=== PATIENT | female | born 1995 | race Two or more races ===

== ENCOUNTER 2019-10-13 21:28 | Emergency (ER) | payer OTHER ==
[~2019-10-13] VITALS: Ht 154.9 cm; Wt 54.4 kg
[~2019-10-13 21:28] MED LIST: CEFTIN250 MG/5 M PO; CIPRO750 MG PO; INTESTINEX680 MG PO; KETO10TA2 PO; KRISTALOSE20 GM PO; LEVSIN/SL0.125 MG SL; LEVSIN0.125 MG PO; MIRALAX510 GM PO; NABUMETONE500 MG PO; PEPCID AC20 MG PO; PROTONIX40 M1 PO; ZANTAC300 MG PO; ZOFRAN4 MG PO; ZOFRAN8 MG PO; [UNRECOGNIZED DRUG - OTHER] IM
[2019-10-13] MEDS ORDERED: TYLENOR (21:40)
[2019-10-14] MEDS ORDERED: KETO10TA2 PO (03:12)
[2019-10-14] MEDS ORDERED: CIPRO500 MG PO (03:12)
[2019-10-14] MEDS ORDERED: ZOFRAN8 MG PO (03:12)
== END 2019-10-14 04:18 | disposition home or self-care (01) ==
LOC: ER 21:28
DX: I88.0 Nonspecific mesenteric lymphadenitis (principal); R10.31 Right lower quadrant pain

== ENCOUNTER 2019-10-18 05:20 | Emergency (ER) | payer OTHER ==
[~2019-10-18] VITALS: Ht 154.9 cm; Wt 56.2 kg
[~2019-10-18 05:20] MED LIST changes: +CIPRO500 MG PO; +TYLENOR
[2019-10-18] MEDS ORDERED: VOLTAREN-XR100 MG PO (08:57)
[2019-10-18] MEDS ORDERED: PEPCID AC20 MG PO (08:57)
== END 2019-10-18 12:07 | disposition home or self-care (01) ==
LOC: ER 05:20
DX: I88.0 Nonspecific mesenteric lymphadenitis (principal); K29.60 Other gastritis without bleeding

== ENCOUNTER 2020-03-27 08:50 | Outpatient (CLI) | payer OTHER ==
[~2020-03-27 08:50] MED LIST changes: +VOLTAREN-XR100 MG PO
== END 2020-03-27 08:51 | disposition home or self-care (01) ==
LOC: RAD 08:50
PROVIDERS: ATTEND Urology
DX: N20.0 Calculus of kidney (principal)

== ENCOUNTER 2020-04-06 08:55 | Outpatient (CLI) | payer OTHER | END 2020-04-06 09:05 | disposition home or self-care (01) | LOC: SONOGRAMA 08:55 | DX: R10.2 Pelvic and perineal pain (principal); N80.0 Endometriosis of uterus ==

== ENCOUNTER 2021-12-20 05:57 | Emergency (ER) | payer OTHER ==
[~2021-12-20] VITALS: Ht 154.9 cm; Wt 57.2 kg
== END 2021-12-20 14:53 | disposition home or self-care (01) ==
LOC: ER 05:57
DX: J02.9 Acute pharyngitis, unspecified (principal)

== ENCOUNTER 2022-04-20 06:47 | Emergency (ER) | payer OTHER ==
[~2022-04-20] VITALS: Ht 154.9 cm; Wt 53.1 kg
== END 2022-04-20 14:46 | disposition home or self-care (01) ==
LOC: ER 06:47
DX: K52.9 Noninfective gastroenteritis and colitis, unspecified (principal)

== ENCOUNTER 2022-05-21 07:58 | Emergency (ER) | payer OTHER ==
[~2022-05-21] VITALS: Ht 154.9 cm; Wt 52.2 kg
[2022-05-21] MEDS ORDERED: PRILOSEC10 MG PO (13:40)
== END 2022-05-21 14:05 | disposition home or self-care (01) ==
LOC: ER 07:58
DX: K21.9 Gastro-esophageal reflux disease without esophagitis (principal)

== ENCOUNTER 2023-03-19 03:03 | Emergency (ER) | payer OTHER ==
[~2023-03-19] VITALS: Ht 154.9 cm; Wt 57.6 kg
[~2023-03-19 03:03] MED LIST changes: +PRILOSEC10 MG PO
[2023-03-19 04:19] LABS: HEMATOCRIT 40.8 % (36.0-45.00); HEMOGLOBIN 13.7 g/dL (12.0-15.00); MEAN CELL VOLUME 79.7 fL (80.00-100.00); MEAN CORPUSCULAR HEMOGLOBIN 26.8 pg (27.00-32.0); MEAN CORPUSCULAR HGB CONC 33.6 g/dl (32.0-36.0); PLATELET COUNT 285 K/uL (150-450); RED BLOOD COUNT 5.12 M/uL (4.00-6.00); RED CELL DISTRIBUTION WIDTH 12.6 % (11.5-14.5)
[2023-03-19 04:40] LABS: ALBUMIN 3.7 gm/dL (3.4-5.0); BILIRUBIN TOTAL 0.48 mg/dL (0.3-1.2); CALCIUM 9.5 mg/dL (8.5-10.1); CREATININE SERUM 0.65 mg/dL (0.55-1.02); GFR 107.02; GLOBULINA 4.5 G/DL (2.4-3.5); POTASSIUM 3.8 mEq/L (3.5-5.1); TOTAL PROTEIN 8.2 gm/dL (6.4-8.2)
[2023-03-19 04:52] LABS: PH,URINE 6.5 (5.0-8.0); URINE APPEARANCE Clear; URINE BILIRRUBIN Negative (NEGATIVE); URINE BLOOD NHT; URINE COLOR Yellow; URINE GLUCOSE Negative (NEGATIVE); URINE LEUKOCYTE Negative; URINE NITRATE Negative; URINE PROTEIN Negative (NEGATIVE)
[2023-03-19 04:56] LABS: URINE BACTERIA 408.1 uL (0.0-1933); URINE EPITHELIAL CELLS 26.8 uL (0.0-38.8); URINE RBC 19.9 uL (0.0-20.8); URINE WBC 10.3 uL (0.0-23.2)
[2023-03-19] MEDS ORDERED: VISTARIL50 MG PO (06:57)
[2023-03-19] MEDS ORDERED: ONDANSETRON ODT4 MG PO (06:57)
[2023-03-19] MEDS ORDERED: PEPCID40 MG PO (06:57)
[2023-03-19] MEDS ORDERED: INTESTINEX680 M2 PO (06:57)
== END 2023-03-19 07:12 | disposition home or self-care (01) ==
LOC: ER 03:03
PROVIDERS: General Practice
DX: F41.1 Generalized anxiety disorder (principal); R10.13 Epigastric pain

== ENCOUNTER 2024-02-28 19:45 | Emergency (ER) | payer OTHER ==
[~2024-02-28] VITALS: Ht 154.9 cm; Wt 56.2 kg
[~2024-02-28 19:45] MED LIST changes: +INTESTINEX680 M2 PO; +ONDANSETRON ODT4 MG PO; +PEPCID40 MG PO; +VISTARIL50 MG PO
[2024-02-28] MEDS ORDERED: FAMOTIDINE/PF 20 MG in 0.9 % SODIUM CHLORIDE 8 ML IV PUSH STA (20:24)
[2024-02-28] MEDS ORDERED: ONDANSETRON HCL 2 MG/ML VIAL IV ONE (20:30)
[2024-02-28] MEDS ORDERED: 0.9 % SODIUM CHLORIDE 1,000 ML IV SCH (20:30)
[2024-02-28 20:48] LABS: HEMATOCRIT 40.4 % (36.0-45.00); HEMOGLOBIN 13.4 g/dL (12.0-15.00); MEAN CELL VOLUME 81.7 fL (80.00-100.00); MEAN CORPUSCULAR HEMOGLOBIN 27.2 pg (27.00-32.0); MEAN CORPUSCULAR HGB CONC 33.3 g/dl (32.0-36.0); PLATELET COUNT 285 K/uL (150-450); RED BLOOD COUNT 4.94 M/uL (4.00-6.00); RED CELL DISTRIBUTION WIDTH 13.2 % (11.5-14.5)
[2024-02-28 21:21] LABS: BILIRUBIN TOTAL 0.45 mg/dL (0.3-1.2); CALCIUM 9.8 mg/dL (8.5-10.1); CREATININE SERUM 0.61 mg/dL (0.55-1.02); GFR 115.16; GLOBULINA 4.3 G/DL (2.4-3.5); POTASSIUM 3.72 mEq/L (3.5-5.1); TOTAL PROTEIN 8.3 gm/dL (6.4-8.2)
[2024-02-28 21:29] LABS: PH,URINE 5.5 (5.0-8.0); URINE APPEARANCE Clear; URINE BILIRRUBIN Negative (NEGATIVE); URINE BLOOD NHT; URINE COLOR Yellow; URINE GLUCOSE Negative (NEGATIVE); URINE LEUKOCYTE Negative; URINE NITRATE Negative; URINE PROTEIN Negative (NEGATIVE); URINE UROBILINOGEN 0.2 E.U./dl
[2024-02-28 21:33] LABS: URINE BACTERIA 13.8 uL (0.0-1933); URINE EPITHELIAL CELLS 24.8 uL (0.0-38.8); URINE RBC 9.4 uL (0.0-20.8); URINE WBC 5.5 uL (0.0-23.2)
[2024-02-28 21:41] LABS: URINE KETONE 80 (NEGATIVE)
[2024-02-28] MEDS ORDERED: METOCLOPRAMIDE HCL 10 MG in DEXTROSE 5 % IN WATER 50 ML IV ONE (22:00)
[2024-02-28] MEDS ORDERED: ONDANSETRON ODT8 MG PO (22:22)
[2024-02-28] MEDS ORDERED: PEPCID AC20 MG PO (22:22)
== END 2024-02-28 22:30 | disposition home or self-care (01) ==
LOC: ER 19:47
PROVIDERS: General Practice
DX: O21.0 Mild hyperemesis gravidarum (principal); Z3A.01 Less than 8 weeks gestation of pregnancy
CPT/HCPCS: 36415; 96365; 96366; 99282; J2405; J3490; J7030; J7070

== ENCOUNTER 2024-02-29 20:29 | Emergency (ER) | payer OTHER ==
[~2024-02-29] VITALS: Ht 154.9 cm; Wt 56.2 kg
[~2024-02-29 20:29] MED LIST changes: +ONDANSETRON ODT8 MG PO
[2024-02-29 21:16] LABS: HEMATOCRIT 41.5 % (36.0-45.00); HEMOGLOBIN 13.7 g/dL (12.0-15.00); MEAN CELL VOLUME 82.3 fL (80.00-100.00); MEAN CORPUSCULAR HEMOGLOBIN 27.2 pg (27.00-32.0); MEAN CORPUSCULAR HGB CONC 33.1 g/dl (32.0-36.0); PLATELET COUNT 314 K/uL (150-450); RED BLOOD COUNT 5.05 M/uL (4.00-6.00); RED CELL DISTRIBUTION WIDTH 13.1 % (11.5-14.5)
[2024-02-29 21:57] LABS: ALBUMIN 3.8 gm/dL (3.4-5.0); BILIRUBIN TOTAL 0.38 mg/dL (0.3-1.2); CALCIUM 9.4 mg/dL (8.5-10.1); CREATININE SERUM 0.8 mg/dL (0.55-1.02); GFR 84.22; GLOBULINA 3.7 G/DL (2.4-3.5); POTASSIUM 4.03 mEq/L (3.5-5.1); TOTAL PROTEIN 7.5 gm/dL (6.4-8.2)
== END 2024-02-29 22:26 | disposition home or self-care (01) ==
LOC: ER 20:30
PROVIDERS: General Practice
DX: O20.9 Hemorrhage in early pregnancy, unspecified (principal); Z3A.01 Less than 8 weeks gestation of pregnancy

== ENCOUNTER 2024-03-19 19:40 | Emergency (ER) | payer OTHER ==
[~2024-03-19] VITALS: Ht 154.9 cm; Wt 55.8 kg
[2024-03-19 19:53] VITALS: BP 103/71; O2SAT 100
[2024-03-19] MEDS ORDERED: FAMOTIDINE/PF 20 MG in 0.9 % SODIUM CHLORIDE 8 ML IV PUSH STA (20:19)
[2024-03-19] MEDS ORDERED: 0.9 % SODIUM CHLORIDE 1,000 ML IV SCH (20:30)
[2024-03-19] MEDS ORDERED: ONDANSETRON HCL 2 MG/ML VIAL IV ONE (20:30)
[2024-03-19 20:54] LABS: HEMATOCRIT 39.8 % (36.0-45.00); HEMOGLOBIN 13.2 g/dL (12.0-15.00); MEAN CELL VOLUME 80.2 fL (80.00-100.00); MEAN CORPUSCULAR HEMOGLOBIN 26.6 pg (27.00-32.0); MEAN CORPUSCULAR HGB CONC 33.1 g/dl (32.0-36.0); PLATELET COUNT 377 K/uL (150-450); RED BLOOD COUNT 4.96 M/uL (4.00-6.00); RED CELL DISTRIBUTION WIDTH 13.1 % (11.5-14.5)
[2024-03-19 21:07] LABS: PARTIAL THROMBOPLASTIN TIME 25.9 SECONDS (22.0-34.0); PROTHROMBIN TIME 10.9 SECONDS (9.0-11.5)
[2024-03-19 21:14] LABS: ALBUMIN 3.8 gm/dL (3.4-5.0); BILIRUBIN TOTAL 0.44 mg/dL (0.3-1.2); CALCIUM 9.6 mg/dL (8.5-10.1); CREATININE SERUM 0.61 mg/dL (0.55-1.02); GFR 114.4; GLOBULINA 4.5 G/DL (2.4-3.5); POTASSIUM 3.81 mEq/L (3.5-5.1); TOTAL PROTEIN 8.3 gm/dL (6.4-8.2)
== END 2024-03-19 22:02 | disposition home or self-care (01) ==
LOC: ER 19:41
PROVIDERS: General Practice
DX: R11.2 Nausea with vomiting, unspecified (principal)
CPT/HCPCS: 36415; 96365; 96366; 99282; J2405; J3490; J7030

== ENCOUNTER 2024-11-21 04:55 | Emergency (ER) | payer OTHER ==
[~2024-11-21] VITALS: Ht 154.9 cm; Wt 58.1 kg
[~2024-11-21 04:55] MED LIST changes: +PRENATAL + DHA1 EACH PO
[2024-11-21] MEDS ORDERED: 0.9 % SODIUM CHLORIDE 1,000 ML IV STA (05:58)
[2024-11-21] MEDS ORDERED: METOCLOPRAMIDE HCL 5 MG/ML VIAL IM STA (05:58)
[2024-11-21] MEDS ORDERED: FAMOtidine 10 MG/ML (4ML VIAL) IV PUSH STA (05:59)
[2024-11-21 07:31] LABS: BASO % 0.3 % (0.1-1.2); EOS # 0.05 (0.04-0.54); EOS % 0.3 % (0.7-7.0); LYMPH # 2.33 (1.18-3.74); LYMPH % 15.5 % (19.3-53.1); MEAN PLATELET VOLUME 9.50 fl (9.4-12.4); MONO # 0.65 (0.24-0.82); MONO % 4.3 % (4.7-12.5); NEUT # 11.84 (1.56-6.13); NEUT % 78.9 % (34.0-71.1); RED CELL DISTRIBUTION WIDTH 12.5 % (11.6-14.4)
[2024-11-21 08:21] LABS: BUN CREA RATIO 13.0 (7.0-25.0); CREATININE SERUM 0.54 mg/dL (0.55-1.02); GFR 131.68; GLUCOSE FASTING 83.0 mg/dL (65-100); HCG QUANTITATIVE 60531.0 mUI/mL (1-3); OSMOLALITY SERUM 273.0 MOSM/KG (275-295)
[2024-11-21 09:05] LABS: URINE APPEARANCE Cloudy; URINE BILIRRUBIN Negative (NEGATIVE); URINE BLOOD Negative; URINE COLOR Dark Yellow; URINE GLUCOSE Negative (NEGATIVE); URINE LEUKOCYTE Small; URINE NITRATE Negative; URINE PROTEIN Trace (NEGATIVE); URINE UROBILINOGEN 1.0 E.U./dl
[2024-11-21 09:09] LABS: URINE BACTERIA 393.5 uL (0.0-1933); URINE EPITHELIAL CELLS 126.4 uL (0.0-38.8); URINE RBC 123.4 uL (0.0-20.8); URINE WBC 39.2 uL (0.0-23.2)
[2024-11-21 09:30] LABS: TYPE CELLS SQUAMOUS; URINE CAST 0.00 uL (0.0-1.40); URINE KETONE 40 (NEGATIVE); URINE YEAST MANY /hpf
[2024-11-22] MEDS ORDERED: ENDOMETRIN100 MG (08:39)
== END 2024-11-21 11:31 | disposition home or self-care (01) ==
LOC: ER 04:55
DX: O21.0 Mild hyperemesis gravidarum (principal); Z3A.01 Less than 8 weeks gestation of pregnancy

== ENCOUNTER 2024-11-22 08:25 | Emergency (ER) | payer OTHER ==
[~2024-11-22] VITALS: Ht 154.9 cm; Wt 58.1 kg
[2024-11-22] MEDS ORDERED: ENDOMETRIN100 MG (08:39)
[2024-11-22] MEDS ORDERED: 0.9 % SODIUM CHLORIDE 500 ML IV ONE (09:00)
[2024-11-22 09:14] LABS: BASO % 0.4 % (0.1-1.2); EOS # 0.08 (0.04-0.54); EOS % 0.6 % (0.7-7.0); LYMPH # 2.07 (1.18-3.74); LYMPH % 15.9 % (19.3-53.1); MEAN PLATELET VOLUME 9.00 fl (9.4-12.4); MONO # 0.65 (0.24-0.82); MONO % 5.0 % (4.7-12.5); NEUT # 10.04 (1.56-6.13); NEUT % 77.3 % (34.0-71.1); RED CELL DISTRIBUTION WIDTH 12.4 % (11.6-14.4)
[2024-11-22 10:16] LABS: BUN CREA RATIO 11.0 (7.0-25.0); CREATININE SERUM 0.66 mg/dL (0.55-1.02); GFR 104.46; GLUCOSE FASTING 103.0 mg/dL (65-100); OSMOLALITY SERUM 274.0 MOSM/KG (275-295)
[2024-11-22 10:22] LABS: HCG QUANTITATIVE 67479.0 mUI/mL (1-3)
[2024-11-22 11:16] LABS: URINE APPEARANCE Cloudy; URINE BILIRRUBIN Negative (NEGATIVE); URINE BLOOD Large; URINE COLOR Yellow; URINE GLUCOSE Negative (NEGATIVE); URINE KETONE Trace (NEGATIVE); URINE LEUKOCYTE Trace; URINE NITRATE Negative; URINE PROTEIN Negative (NEGATIVE); URINE UROBILINOGEN 1.0 E.U./dl
[2024-11-22 11:21] LABS: URINE BACTERIA 103.2 uL (0.0-1933); URINE EPITHELIAL CELLS 29.0 uL (0.0-38.8); URINE RBC 140.7 uL (0.0-20.8); URINE WBC 6.3 uL (0.0-23.2)
[2024-11-22 12:32] LABS: URINE CAST 0.00 uL (0.0-1.40); URINE YEAST MODERATE /hpf
== END 2024-11-22 13:33 | disposition home or self-care (01) ==
LOC: ER 08:25
PROVIDERS: General Practice
DX: O20.0 Threatened abortion (principal); Z3A.01 Less than 8 weeks gestation of pregnancy

== ENCOUNTER 2024-12-04 10:59 | Emergency (ER) | payer OTHER ==
[~2024-12-04] VITALS: Ht 152.4 cm; Wt 52.2 kg
[~2024-12-04 10:59] MED LIST changes: +ENDOMETRIN100 MG
[2024-12-04] MEDS ORDERED: PRIMACARE SOFT1 EACH (11:06)
[2024-12-04] MEDS ORDERED: ZOFRAN8 MG (11:06)
[2024-12-04] MEDS ORDERED: PEPCID AC20 MG (11:07)
[2024-12-04] MEDS ORDERED: 0.9 % SODIUM CHLORIDE 1,000 ML IV STA (11:53)
[2024-12-04] MEDS ORDERED: ONDANSETRON HCL 2 MG/ML VIAL IV STA (11:53)
[2024-12-04] MEDS ORDERED: ONDANSETRON HCL 2 MG/ML VIAL ONE (12:10)
[2024-12-04 12:22] LABS: BASO % 0.3 % (0.1-1.2); EOS # 0.09 (0.04-0.54); EOS % 0.6 % (0.7-7.0); LYMPH # 2.05 (1.18-3.74); LYMPH % 12.8 % (19.3-53.1); MEAN PLATELET VOLUME 9.40 fl (9.4-12.4); MONO # 1.03 (0.24-0.82); MONO % 6.4 % (4.7-12.5); NEUT # 12.73 (1.56-6.13); NEUT % 79.2 % (34.0-71.1); RED CELL DISTRIBUTION WIDTH 12.4 % (11.6-14.4)
[2024-12-04 12:44] LABS: BUN CREA RATIO 10.0 (7.0-25.0); CREATININE SERUM 0.73 mg/dL (0.55-1.02); GFR 92.99; GLUCOSE FASTING 99.0 mg/dL (65-100); OSMOLALITY SERUM 274.0 MOSM/KG (275-295)
[2024-12-04 12:47] VITALS: BP 110/67; O2SAT 98
[2024-12-04 13:53] LABS: URINE APPEARANCE Clear; URINE BILIRRUBIN Negative (NEGATIVE); URINE BLOOD Small; URINE COLOR Yellow; URINE GLUCOSE Negative (NEGATIVE); URINE KETONE Trace (NEGATIVE); URINE LEUKOCYTE Negative; URINE NITRATE Negative; URINE PROTEIN Negative (NEGATIVE); URINE UROBILINOGEN 1.0 E.U./dl
[2024-12-04 13:57] LABS: URINE BACTERIA 56.4 uL (0.0-1933); URINE EPITHELIAL CELLS 26.1 uL (0.0-38.8); URINE RBC 71.4 uL (0.0-20.8); URINE WBC 9.5 uL (0.0-23.2)
[2024-12-04 14:01] LABS: URINE CAST 0.00 uL (0.0-1.40)
== END 2024-12-04 16:22 | disposition home or self-care (01) ==
LOC: ER 10:59
PROVIDERS: Emergency Medicine
DX: O21.0 Mild hyperemesis gravidarum (principal); Z3A.12 12 weeks gestation of pregnancy

== ENCOUNTER 2024-12-15 15:16 | Emergency (ER) | payer OTHER ==
[~2024-12-15] VITALS: Ht 154.9 cm; Wt 56.7 kg
[~2024-12-15 15:16] MED LIST changes: +PEPCID AC20 MG; +PRIMACARE SOFT1 EACH; +ZOFRAN8 MG
[2024-12-15] MEDS ORDERED: REGLAN5 MG/5 ML (16:27)
[2024-12-15] MEDS ORDERED: FAMOTIDINE/PF 20 MG in 0.9 % SODIUM CHLORIDE 8 ML IV PUSH STA (16:47)
[2024-12-15] MEDS ORDERED: ONDANSETRON HCL 2 MG/ML VIAL IV ONE (17:00)
[2024-12-15] MEDS ORDERED: 0.9 % SODIUM CHLORIDE 1,000 ML IV SCH (17:00)
[2024-12-15 17:20] LABS: BASO % 0.4 % (0.1-1.2); EOS # 0.16 (0.04-0.54); EOS % 1.0 % (0.7-7.0); LYMPH # 2.42 (1.18-3.74); LYMPH % 15.1 % (19.3-53.1); MEAN PLATELET VOLUME 9.00 fl (9.4-12.4); MONO # 0.88 (0.24-0.82); MONO % 5.5 % (4.7-12.5); NEUT # 12.34 (1.56-6.13); NEUT % 77.1 % (34.0-71.1); RED CELL DISTRIBUTION WIDTH 12.5 % (11.6-14.4)
[2024-12-15 18:14] LABS: ALT/SGPT 19.0 U/L (12-78); AST/SGOT 10.0 U/L (15-37); BILIRUBIN TOTAL 0.38 mg/dL (0.3-1.2); BUN CREA RATIO 12.0 (7.0-25.0); CREATININE SERUM 0.51 mg/dL (0.55-1.02); GFR 140.65; GLOBULINA 4.6 G/DL (2.4-3.5); GLUCOSE FASTING 83.0 mg/dL (65-100); OSMOLALITY SERUM 274.0 MOSM/KG (275-295)
[2024-12-15 18:15] LABS: HCG QUANTITATIVE 128782.0 mUI/mL (1-3)
[2024-12-15] MEDS ORDERED: DICLEGIS DR 101 EACH PO (18:56)
== END 2024-12-15 20:21 | disposition home or self-care (01) ==
LOC: ER 15:16
PROVIDERS: General Practice
DX: O21.0 Mild hyperemesis gravidarum (principal); Z3A.10 10 weeks gestation of pregnancy

== ENCOUNTER 2025-01-01 19:28 | Emergency (ER) | payer OTHER ==
[~2025-01-01] VITALS: Ht 154.9 cm; Wt 56.7 kg
[~2025-01-01 19:28] MED LIST changes: +DICLEGIS DR 101 EACH PO; +REGLAN5 MG/5 ML
[2025-01-01 19:52] VITALS: BP 109/74; O2SAT 95
[2025-01-01] MEDS ORDERED: 0.9 % SODIUM CHLORIDE 1,000 ML IV ONE (20:45)
[2025-01-01] MEDS ORDERED: ONDANSETRON HCL 2 MG/ML VIAL IV ONE (20:45)
[2025-01-01] MEDS ORDERED: FAMOtidine 10 MG/ML (4ML VIAL) IV ONE (20:45)
[2025-01-01 21:23] LABS: BASO % 0.3 % (0.1-1.2); EOS # 0.09 (0.04-0.54); EOS % 0.6 % (0.7-7.0); LYMPH # 2.27 (1.18-3.74); LYMPH % 14.6 % (19.3-53.1); MEAN PLATELET VOLUME 9.00 fl (9.4-12.4); MONO # 0.71 (0.24-0.82); MONO % 4.6 % (4.7-12.5); NEUT # 12.31 (1.56-6.13); NEUT % 79.1 % (34.0-71.1); RED CELL DISTRIBUTION WIDTH 12.7 % (11.6-14.4)
[2025-01-01 22:03] LABS: COVID-19 AG NEGATIVE (NEGATIVE)
[2025-01-01] MEDS ORDERED: ZOFRAN8 MG PO (22:27)
[2025-01-01] MEDS ORDERED: PEPCID AC20 MG PO (22:27)
[2025-01-01] MEDS ORDERED: ACETAMINOPHEN 325 MG TABLET PO ONE (22:45)
== END 2025-01-01 22:46 | disposition home or self-care (01) ==
LOC: ER 19:28
PROVIDERS: General Practice
DX: O21.0 Mild hyperemesis gravidarum (principal); Z3A.12 12 weeks gestation of pregnancy; R10.9 Unspecified abdominal pain; Z20.822 Contact with and (suspected) exposure to COVID-19

== ENCOUNTER → 2025-01-06 | Emergency (ER) | payer OTHER ==
[~2025-01-06] VITALS: Ht 154.9 cm; Wt 56.7 kg
[~2025-01-06] MED LIST changes: +0.9 % SODIUM CHLORIDE 1,000 ML IV ONE; +FAMOtidine 10 MG/ML (4ML VIAL) IV ONE; +ONDANSETRON 4 MG TAB.RAPDIS PO ONE; +ONDANSETRON HCL 2 MG/ML VIAL IV ONE
[2025-01-06 15:44] LABS: BASO % 0.2 % (0.1-1.2); EOS # 0.10 (0.04-0.54); EOS % 0.8 % (0.7-7.0); LYMPH # 1.93 (1.18-3.74); LYMPH % 14.8 % (19.3-53.1); MEAN PLATELET VOLUME 9.10 fl (9.4-12.4); MONO # 0.75 (0.24-0.82); MONO % 5.8 % (4.7-12.5); NEUT # 10.05 (1.56-6.13); NEUT % 77.1 % (34.0-71.1); RED CELL DISTRIBUTION WIDTH 12.8 % (11.6-14.4)
[2025-01-06 16:20] LABS: ALT/SGPT 25.0 U/L (12-78); AST/SGOT 15.0 U/L (15-37); BILIRUBIN TOTAL 0.36 mg/dL (0.3-1.2); BUN CREA RATIO 9.0 (7.0-25.0); COVID-19 AG NEGATIVE (NEGATIVE); CREATININE SERUM 0.47 mg/dL (0.55-1.02); GFR 154.56; GLOBULINA 4.6 G/DL (2.4-3.5); GLUCOSE FASTING 88.0 mg/dL (65-100); OSMOLALITY SERUM 274.0 MOSM/KG (275-295)
== END | disposition home or self-care (01) ==
LOC: ER 13:55
PROVIDERS: General Practice
DX: O21.0 Mild hyperemesis gravidarum (principal); Z3A.13 13 weeks gestation of pregnancy; Z20.822 Contact with and (suspected) exposure to COVID-19

== ENCOUNTER 2025-01-11 08:28 | Emergency (ER) | payer OTHER ==
[~2025-01-11] VITALS: Ht 154.9 cm; Wt 56.7 kg
[~2025-01-11 08:28] MED LIST changes: -0.9 % SODIUM CHLORIDE 1,000 ML IV ONE; -FAMOtidine 10 MG/ML (4ML VIAL) IV ONE; -ONDANSETRON 4 MG TAB.RAPDIS PO ONE; -ONDANSETRON HCL 2 MG/ML VIAL IV ONE
[2025-01-11] MEDS ORDERED: ONDANSETRON HCL 2 MG/ML VIAL IV ONE ×3 (09:15→19:00)
[2025-01-11] MEDS ORDERED: FAMOTIDINE/PF 20 MG/2 ML VIAL IV ONE (09:30)
[2025-01-11] MEDS ORDERED: 0.9 % SODIUM CHLORIDE 500 ML IV ONE ×2 (09:30→15:45)
[2025-01-11 10:10] LABS: BASO % 0.4 % (0.1-1.2); EOS # 0.07 (0.04-0.54); EOS % 0.5 % (0.7-7.0); LYMPH # 1.51 (1.18-3.74); LYMPH % 10.7 % (19.3-53.1); MEAN PLATELET VOLUME 9.00 fl (9.4-12.4); MONO # 0.63 (0.24-0.82); MONO % 4.5 % (4.7-12.5); NEUT # 11.67 (1.56-6.13); NEUT % 82.6 % (34.0-71.1); RED CELL DISTRIBUTION WIDTH 12.7 % (11.6-14.4)
[2025-01-11 10:41] LABS: BUN CREA RATIO 9.0 (7.0-25.0); CREATININE SERUM 0.47 mg/dL (0.55-1.02); GFR 154.56; GLUCOSE FASTING 86.0 mg/dL (65-100); OSMOLALITY SERUM 274.0 MOSM/KG (275-295)
[2025-01-11 10:43] LABS: URINE APPEARANCE Cloudy; URINE BILIRRUBIN Small (NEGATIVE); URINE BLOOD Negative; URINE COLOR Dark Yellow; URINE GLUCOSE Negative (NEGATIVE); URINE LEUKOCYTE Trace; URINE NITRATE Negative; URINE PROTEIN 30 (NEGATIVE); URINE UROBILINOGEN 1.0 E.U./dl
[2025-01-11 10:48] LABS: URINE BACTERIA 74.3 uL (0.0-1933); URINE EPITHELIAL CELLS 174.1 uL (0.0-38.8); URINE RBC 55.8 uL (0.0-20.8); URINE WBC 21.6 uL (0.0-23.2)
[2025-01-11 10:57] LABS: HCG QUANTITATIVE 106096.0 mUI/mL (1-3)
[2025-01-11 11:08] LABS: TYPE CELLS SQUAMOUS; URINE CAST 0.43 uL (0.0-1.40); URINE KETONE >=160 (NEGATIVE); URINE MUCUS HEAVY
[2025-01-11] MEDS ORDERED: PEPCID20 MG PO (20:41)
[2025-01-11] MEDS ORDERED: ONDANSETRON ODT4 MG PO (20:41)
[2025-01-11] MEDS ORDERED: ONDANSETRON ODT4 MG SL (20:53)
== END 2025-01-11 23:05 | disposition home or self-care (01) ==
LOC: ER 08:30
PROVIDERS: General Practice
DX: O21.0 Mild hyperemesis gravidarum (principal); Z3A.14 14 weeks gestation of pregnancy; K29.70 Gastritis, unspecified, without bleeding

== ENCOUNTER 2025-01-14 07:49 | Emergency (ER) | payer OTHER ==
[~2025-01-14] VITALS: Ht 154.9 cm; Wt 55.8 kg
[~2025-01-14 07:49] MED LIST changes: +ONDANSETRON ODT4 MG SL; +PEPCID20 MG PO
[2025-01-14] MEDS ORDERED: 0.9 % SODIUM CHLORIDE 1,000 ML IV ONE (09:00)
[2025-01-14] MEDS ORDERED: FAMOtidine 10 MG/ML (4ML VIAL) IV ONE (09:00)
[2025-01-14] MEDS ORDERED: ONDANSETRON HCL 2 MG/ML VIAL IV ONE (09:00)
[2025-01-14 09:35] LABS: BASO % 0.3 % (0.1-1.2); EOS # 0.04 (0.04-0.54); EOS % 0.3 % (0.7-7.0); LYMPH # 1.63 (1.18-3.74); LYMPH % 12.0 % (19.3-53.1); MEAN PLATELET VOLUME 9.10 fl (9.4-12.4); MONO # 0.69 (0.24-0.82); MONO % 5.1 % (4.7-12.5); NEUT # 10.97 (1.56-6.13); NEUT % 81.0 % (34.0-71.1); RED CELL DISTRIBUTION WIDTH 12.8 % (11.6-14.4)
[2025-01-14 10:00] LABS: ALT/SGPT 44.0 U/L (12-78); AST/SGOT 30.0 U/L (15-37); BILIRUBIN TOTAL 0.66 mg/dL (0.3-1.2); BUN CREA RATIO 9.0 (7.0-25.0); CREATININE SERUM 0.44 mg/dL (0.55-1.02); GFR 166.78; GLOBULINA 5.1 G/DL (2.4-3.5); GLUCOSE FASTING 86.0 mg/dL (65-100); OSMOLALITY SERUM 272.0 MOSM/KG (275-295)
[2025-01-14 10:23] LABS: COVID-19 AG NEGATIVE (NEGATIVE)
[2025-01-14] MEDS ORDERED: DICLEGIS DR 101 EACH PO (10:43)
[2025-01-14] MEDS ORDERED: ZOFRAN8 MG PO (10:43)
[2025-01-14] MEDS ORDERED: PROTONIX40 MG PO (10:43)
== END 2025-01-14 08:31 | disposition home or self-care (01) ==
LOC: ER 07:49
PROVIDERS: General Practice
DX: O21.0 Mild hyperemesis gravidarum (principal); Z3A.14 14 weeks gestation of pregnancy; Z20.822 Contact with and (suspected) exposure to COVID-19

== ENCOUNTER 2025-02-19 06:26 | Emergency (ER) | payer OTHER ==
[~2025-02-19] VITALS: Ht 154.9 cm; Wt 57.6 kg
[~2025-02-19 06:26] MED LIST changes: +PROTONIX40 MG PO
[2025-02-19] MEDS ORDERED: PEPCID AC10 MG (06:39)
[2025-02-19] MEDS ORDERED: PRENATAL + DHA1 EAC1 (06:39)
[2025-02-19] MEDS ORDERED: FAMOTIDINE/PF 20 MG in 0.9 % SODIUM CHLORIDE 8 ML IV PUSH ONE (07:45)
[2025-02-19] MEDS ORDERED: ACETAMINOPHEN 500 MG GEL..CAP PO ONE ×2 (07:45→08:15)
[2025-02-19] MEDS ORDERED: ONDANSETRON HCL 4 MG in 0.9 % SODIUM CHLORIDE 50 ML IV ONE (07:45)
[2025-02-19] MEDS ORDERED: RINGERS SOLUTION,LACTATED 1,000 ML IV SCH (07:45)
[2025-02-19] MEDS ORDERED: ONDANSETRON HCL 2 MG/ML VIAL ONE (08:14)
[2025-02-19] MEDS ORDERED: FAMOTIDINE/PF 20 MG/2 ML VIAL ONE (08:15)
[2025-02-19 08:49] LABS: BASO % 0.9 % (0.1-1.2); EOS # 0.08 (0.04-0.54); EOS % 0.6 % (0.7-7.0); LYMPH # 1.53 (1.18-3.74); LYMPH % 11.3 % (19.3-53.1); MEAN PLATELET VOLUME 9.20 fl (9.4-12.4); MONO # 0.72 (0.24-0.82); MONO % 5.3 % (4.7-12.5); NEUT # 10.51 (1.56-6.13); NEUT % 78.0 % (34.0-71.1); RED CELL DISTRIBUTION WIDTH 13.4 % (11.6-14.4)
[2025-02-19 09:12] LABS: INR 1.0
[2025-02-19 09:26] LABS: ALT/SGPT 26.0 U/L (12-78); AST/SGOT 14.0 U/L (15-37); BILIRUBIN TOTAL 0.3 mg/dL (0.3-1.2); BUN CREA RATIO 5.0 (7.0-25.0); CREATININE SERUM 0.44 mg/dL (0.55-1.02); GFR 166.78; GLOBULINA 4.8 G/DL (2.4-3.5); GLUCOSE FASTING 86.0 mg/dL (65-100); OSMOLALITY SERUM 275.0 MOSM/KG (275-295)
[2025-02-19 09:35] LABS: BAND MAN 1.0 %; LYMPHOCYTE MAN 20.0 %; MONOCYTE MAN 3.0 %; NEUTROPHILS MAN 74.0 %
[2025-02-19 09:42] LABS: HCG QUANTITATIVE 38910.0 mUI/mL (1-3)
[2025-02-19 12:11] LABS: URINE APPEARANCE Clear; URINE BILIRRUBIN Negative (NEGATIVE); URINE BLOOD Negative; URINE COLOR Yellow; URINE GLUCOSE Negative (NEGATIVE); URINE LEUKOCYTE Negative; URINE NITRATE Negative; URINE PROTEIN Negative (NEGATIVE); URINE UROBILINOGEN 0.2 E.U./dl
[2025-02-19 12:15] LABS: URINE BACTERIA 12.0 uL (0.0-1933); URINE EPITHELIAL CELLS 12.1 uL (0.0-38.8); URINE RBC 5.4 uL (0.0-20.8)
[2025-02-19] MEDS ORDERED: 0.9 % SODIUM CHLORIDE 1,000 ML IV ONE (12:15)
[2025-02-19 12:32] LABS: URINE CAST 0.00 uL (0.0-1.40); URINE KETONE 40 (NEGATIVE); URINE WBC 1.6 uL (0.0-23.2)
[2025-02-19] MEDS ORDERED: ACETAMINOPHEN500 M2 PO (13:48)
== END 2025-02-19 14:43 | disposition home or self-care (01) ==
LOC: ER 06:27
PROVIDERS: General Practice
DX: O26.892 Other specified pregnancy related conditions, second trimester (principal); Z3A.19 19 weeks gestation of pregnancy; R10.21 Pelvic and perineal pain right side; K29.70 Gastritis, unspecified, without bleeding; K21.9 Gastro-esophageal reflux disease without esophagitis; N20.0 Calculus of kidney

== ENCOUNTER → 2025-05-18 09:26 | Outpatient (CLI) | payer OTHER ==
[~2025-05-18 09:26] MED LIST changes: +ACETAMINOPHEN500 M2 PO; +PEPCID AC10 MG; +PRENATAL + DHA1 EAC1
== END | disposition home or self-care (01) ==
LOC: PRENATAL 09:26
PROVIDERS: ATTEND Obstetrics & Gynecology Maternal & Fetal Medicine
DX: O26.843 Uterine size-date discrepancy, third trimester (principal); O36.8130 Decreased fetal movements, third trimester, not applicable or unspecified; Z3A.33 33 weeks gestation of pregnancy